=== PATIENT | female | born 1970 | race African-American/Black ===

== ENCOUNTER → 2021-03-02 | Outpatient (CLI) | payer OTHER ==
[~2021-03-02] MED LIST: REGADENOSON 0.4 MG/5 ML DISP.SYRIN. IV ONE
--- NOTE | 2021-03-02 14:27 | RAD ---
MR#: [id number] Date of Study: 03/02/2021 Ordering Physician: MAURI GAY, Referring Physician: MASOUD IRVING Tech: JARON Izquierdo, ARRT (R) (N) APPROVED REPORT Test Type: Pharmacological Stress Nurse/Tech: Katie Samuel RN Test Indications: chest pain Cardiac History: smoker, DM Medications: See Electronic Medical Record Medical History: See Electronic Medical Record Resting ECG: SR PVC Resting Heart Rate: 73 bpm Resting Blood Pressure: 116/60mmHg Pretest Chest Pain: None Nurse/Tech Notes Lungs CTA, S1S2 Consent: The procedure was explained to the patient in lay terms. Informed consent was witnessed. Rolan eout was entered into [employer] History and Stress Test performed by RT Cris (R) (N) Pharm. Details Pharmacologic stress testing was performed using 0.4mg per 5ml of regadenoson given intravenously ove r 7-10 seconds. Stress Symptoms No chest pain or symptoms. POST EXERCISE Reason for Termination: Infusion complete Max HR: 109 bpm Max Blood Pressure: 141/71mmHg Blood Pressure response to exercise: Normal blood pressure response during stress. Heart Rate response to exercise: normal response Chest Pain: No. Arrhythmia: No. ST Change: No. INTERPRETATION Stress EKG Conclusion: Baseline EKG showed sinus rhythm. No ischemic changes at peak stress. No arr hythmias. Imaging Protocol IMAGE PROTOCOL: Rest Tc-99m/stress Tc-99m 1 day Rest: Stress: Viability: Radiopharm.Tc99m [id number] Sestamibi Kagk60dYg 31mCi Img Date 03/02/2021 03/02/2021 Inj-Img [id number]. 60min. Rest Admin Site:IV - Right HandAdministrator:JARON Izquierdo, ARRCandis (R)(N) Stress Admin Site: IV - Right HandAdministrator: RT Ari Lynch)(N) STRESS DATA End Diast. Vol.39.0mlLVEDV index BSA23.0ml End Syst. Vol.6.0mlLVESV index BSA4.0ml Myocardial Mass83.0gEject. Kjncqkvw49.0% Stress Scores Regional WT2.00Summed WT9.00 Regional WM0.00Summed WM0.00 Study quality was good. Left Ventricular size was Normal at Rest and Stress. Lung uptake was . Left Ventricular ejection fraction is 78%. The rest and stress images show normal perfusion, normal contraction and thickening. LV Perf. Quant 17 Seg. SSS3.00 17 Seg. SRS1.00 17 Seg. SDS2.00 Stress Defect Extent (% LAD)0.00Rest Defect Extent (% LAD)0.00Rev. Defect Extent (% LAD)0.00 Stress Defect Extent (% LCX) 23.80Rest Defect Extent (% LCX)0.00Rev. Defect Extent (% LCX)6.30 Stress Defect Extent (% RCA)0.00Rest Defect Extent (% RCA)0.00Rev. Defect Extent (% RCA)0.00 Stress Defect Extent (% GODWIN)4.10Rest Defect Extent (% GODWIN)0.00Rev. Defect Extent (% GODWIN)1.10 Conclusion 1. Regadenoson cardioisotope stress test did not show any evidence of ischemia or infarct. 2. Normal left ventricular systolic function with ejection fraction calculated at 78%. 3. Low risk for cardiac events. Signed by : Chace Aguero, Electronically Approved : 03/02/2021 14:27:05
== END ==
LOC: NM 08:16
PROVIDERS: ATTEND Internal Medicine Cardiovascular Disease
DX: R07.9 Chest pain, unspecified (principal); Z87.891 Personal history of nicotine dependence
CPT/HCPCS: 78452; 93017; A9500; J2785